=== PATIENT | female | born 1945 | race Caucasian/White ===

== ENCOUNTER 2021-09-10 23:34 | Emergency (ER) | payer SELFPAY ==
[~2021-09-10] VITALS: Ht 154.9 cm; Wt 50.0 kg
[2021-09-10] MEDS ORDERED: LORAZEPAM 2MG/ML CPJ IV STA (23:44)
[2021-09-10] MEDS ORDERED: DIPHENHYDRAMINE 50MG/ML VIAL IV ONE (23:45)
[2021-09-11 00:40] LABS: BASOPHILS % 0.5 % (0.0-2.0); EOSINOPHILS % 0.3 % (0.0-5.0); HEMATOCRIT. 32.4 % (36.0-48.0); HEMOGLOBIN. 10.8 g/dL (12.0-16.0); LYMPHOCYTES % 9.4 % (20.0-50.0); MEAN CORPUSCULAR HEMOGLOBIN 28.6 pg (28.0-32.0); MEAN CORPUSCULAR VOLUME 85.6 fL (81.0-99.0); MEAN PLATELET VOLUME 7.9 fl (7.4-10.4); NEUTROPHILS % 85.8 % (40.0-76.0); PLATELET 300 x1000/uL (130-400); RED BLOOD CELL COUNT 3.78 mill/uL (4.2-5.4); RED CELL DISTRIBUTION WIDTH 14.8 % (11.6-14.6)
[2021-09-11 00:46] LABS: CHLORIDE 103 mEq/L (98-107)
[2021-09-11 00:50] LABS: ETHANOL BLOOD < 10 mg/dL
[2021-09-11] MEDS ORDERED: LORAZEPAM 2MG/ML CPJ IV SCH (09:01)
[2021-09-11] MEDS ORDERED: ACETAMINOPHEN 325MG TABLET PO PRN (13:15)
[2021-09-11] MEDS ORDERED: ONDANSETRON HCL 4MG/2ML INJ IV PRN (13:15)
[2021-09-11] MEDS ORDERED: HALOPERIDOL LACTATE 5MG/ML VIAL IM NR (13:30)
[2021-09-11] MEDS ORDERED: LORAZEPAM 2MG/ML CPJ IM NR (13:30)
[2021-09-11 14:20] VITALS: BP 118/59
== END 2021-09-11 14:24 | disposition home or self-care (01) ==
LOC: ER 23:34 → CANBEDREQ 09-11 14:33
DX: F29 Unspecified psychosis not due to a substance or known physiological condition (principal); E86.0 Dehydration; G93.40 Encephalopathy, unspecified; F20.9 Schizophrenia, unspecified; Z20.822 Contact with and (suspected) exposure to COVID-19
CPT/HCPCS: 36415; 70450; 71045; 80053; 80307; 80320; 80329; 85025; 87426; 93005; 96374; 96375; 96376; 99285; J2060; Z7610; G0480